=== PATIENT | male | born 1955 | race Hispanic/Latino ===

== ENCOUNTER 2018-09-07 10:21 | Outpatient (CLI) | payer MEDICARE, MEDICAID ==
--- NOTE | 2018-09-07 11:42 | CT ---
EXAM: CT ABDOMEN AND PELVIS HISTORY: History prostate cancer. COMPARISON: 09/18/2015 Procedure: Multiple contiguous axial images were obtained and a CT of the abdomen and pelvis with IV contrast. C oronal reformats were performed. FINDINGS: Lower Chest: within normal limits. Vessels: Normal caliber aorta Heart: Normal heart size. No pericardial effusion Abdomen: Portal vein:Patent Gallbladder: No calcified gallstones. Normal caliber wall. Liver: within normal limits. Pancreas: within normal limits. Spleen: within normal limits. Adrenals: within normal limits. Kidneys: Symmetric enhancement of the kidneys. Bilaterally no obstructive uropathy. Stable hypodensit y anterior and slightly medial to the left kidney measuring 1.5 x 2.2 cm per Peritoneum: No ascites or free air, no fluid collection. Bowel: Normal caliber. Mesentery and Retroperitoneum: No enlarged mesenteric or retroperitoneal lymph nodes. Abdominal Wall: Small umbilical hernia containing mesenteric fat Pelvis: Reproductive Organs: Enlarged prostate gland. Mass effect upon the floor of the urinary bladder. Pelvis: within normal limits. Bladder: Mass effect upon the floor of the urinary bladder with mild bladder wall mucosal thickening. Bones: within normal limits. Old right rib fracture is noted IMPRESSION: 1. Stable left parapelvic renal cyst 2. Symmetric enhancement the kidneys. No obstructive uropathy 3. Enlarged prostate gland 4. Urinary bladder wall mucosal thickening which is presumed to be due to chronic bladder outlet obst ruction. 5. No evidence of osseous metastases
[2018-09-07] MEDS ORDERED: Iopamidol 370 76% 100 ML VIAL ONE (13:21)
--- NOTE | 2018-09-07 16:22 | NM ---
NUCLEAR MEDICINE BONE SCAN WHOLE BODY: (SKELETAL SCINTIGRAPHY) 09/07/18 HISTORY: 63-year-old male with malignant neoplasm of prostate, evaluate for osseous metastasis. Elevated PSA . TECHNIQUE: IV injection of [id number]: 32.3 mCi 3 hour delayed whole body skeletal scintigraphy in anterior and posterior views. FINDINGS: There are no foci of asymmetrically increased uptake that are particularly suspicious for bone metast ases. Compared to the bone scan of 12/22/15, there is now a new finding of a small focus of increased uptake at the right posterior L4-5 level. This corresponds to the high grade right sided facet osteo arthrosis demonstrated on the CT of abdomen and pelvis obtained today. IMPRESSION: 1. No compelling evidence of skeletal metastasis. 2. high grade right facet osteoarthrosis at L4-5. JN Henok POS: CET
== END 2018-09-07 10:22 | disposition home or self-care (01) ==
LOC: NM 10:21
PROVIDERS: ATTEND Urology
DX: C61 Malignant neoplasm of prostate (principal); N28.1 Cyst of kidney, acquired; N40.0 Benign prostatic hyperplasia without lower urinary tract symptoms; N32.89 Other specified disorders of bladder; M47.816 Spondylosis without myelopathy or radiculopathy, lumbar region; N28.89 Other specified disorders of kidney and ureter
CPT/HCPCS: 74177; 78306; 82565; A9503

== ENCOUNTER 2018-09-23 06:41 | Emergency (ER) | payer MEDICARE, MEDICAID ==
[2018-09-23] MEDS ORDERED: Acetaminophen 325 MG TAB ONE (07:43)
[2018-09-23] MEDS ORDERED: Ketorolac Tromethamine 30 MG/ML VIAL ONE (07:43)
--- NOTE | 2018-09-23 08:24 | CT ---
CT cervical spine without contrast: Multiple axial tones obtained through cervical spine with multiplanar reconstruction. INDICATIONS: Chronic neck pain COMPARISON: Cervical spine films 08/29/2015 FINDINGS: Postoperative and degenerative changes are apparent. Anterior plate and screws transfix C3, C4, C5, a nd C6. Interbody implants at these levels. Hypertrophic spurring is seen anteriorly. Posterior spondylosis. Mild anterolisthesis at C4-5 appears similar to the prior study exam. C3-4: Spondylosis abut the anterior cord. Bilateral foraminal stenosis due to hypertrophic change C4-5: Slight anterolisthesis. Posterior spondylosis impinges on the anterior cord centrally and to th e right. Right foraminal stenosis. C5-6: Spondylosis abuts the anterior cord. Right foraminal stenosis. C6-7: Spondylosis impinges on the anterior cord. Bilateral foraminal stenosis, more severe on the lef t. No acute fracture. IMPRESSION: Postoperative and degenerative changes of cervical spine as described
[2018-09-23 08:37] LABS: #Basophils 0.1 thou/uL (0.0-0.2); #Eosinphils 0.3 thou/uL (0.0-0.7); #Monocytes 0.6 thou/uL (0.11-0.59); %Basophils 0.7 % (0.0-1.0); %Eosinophils 3.1 % (0.0-10.0); %Lymphocytes 22.7 % (21.0-51.0); %Monocytes 6.6 % (0.0-10.0); %Neutrophils 66.9 % (42.0-75.0); Hemoglobin 14.3 g/dL (14.0-18.0); Mean Corpuscular HGB CONC 34.1 g/dL (32.0-36.0); Mean Corpuscular Hemoglobin 32.6 pg (27.0-31.0); Mean Corpuscular Volume 95.6 fL (78.0-98.0); Mean Platelet Volume 6.6 fL (7.4-10.4); Platelet Count 285 thou/uL (130-400); RBC Distribution Width 13.2 % (11.5-14.5); Red Blood Cell (RBC) Count 4.37 mill/uL (4.70-6.10)
[2018-09-23 08:51] LABS: ALT (SGPT) 16 U/L (8-55); AST (SGOT) 12 U/L (5-34); Albumin 4.4 g/dL (3.4-4.8); Alkaline Phosphatase 131 U/L (40-150); Anion Gap 13 mmol/L (10-20); BUN (Urea Nitrogen) 16 mg/dL (8.4-25.7); Bilirubin, Total 0.3 mg/dL (0.2-1.2); Calc. Creatinine Clearance 0 mL/min (70-130); Carbon Dioxide 23 mmol/L (23-31); Chloride 105 mmol/L (98-107); Estimated GFR-MDRD 69; Globulin 2.7 g/dL (2.4-3.5); Glucose 118 mg/dL (80-115); Potassium 4.6 mmol/L (3.5-5.1); Protein, Total 7.1 g/dL (5.8-8.1); Sodium 136 mmol/L (136-145)
== END 2018-09-23 09:31 | disposition home or self-care (01) ==
LOC: ERS 06:41
DX: M50.121 Cervical disc disorder at C4-C5 level with radiculopathy (principal); M50.122 Cervical disc disorder at C5-C6 level with radiculopathy; M50.123 Cervical disc disorder at C6-C7 level with radiculopathy; I10 Essential (primary) hypertension; I25.2 Old myocardial infarction; E78.00 Pure hypercholesterolemia, unspecified; F17.210 Nicotine dependence, cigarettes, uncomplicated
CPT/HCPCS: 36415; 72125; 80053; 85025; 96372; J1885

== ENCOUNTER 2018-11-04 08:57 | Emergency (ER) | payer MEDICARE, MEDICAID ==
[2018-11-04 09:58] LABS: #Basophils 0.1 thou/uL (0.0-0.2); #Eosinphils 0.3 thou/uL (0.0-0.7); #Lymphocytes 2.3 thou/uL (1.20-3.40); #Monocytes 0.6 thou/uL (0.11-0.59); #Neutrophils 6.5 thou/uL (1.40-6.50); %Basophils 0.5 % (0.0-1.0); %Eosinophils 2.8 % (0.0-10.0); %Lymphocytes 23.5 % (21.0-51.0); %Monocytes 6.4 % (0.0-10.0); %Neutrophils 66.8 % (42.0-75.0); Hemoglobin 13.4 g/dL (14.0-18.0); Mean Corpuscular HGB CONC 35.3 g/dL (32.0-36.0); Mean Corpuscular Hemoglobin 33.7 pg (27.0-31.0); Mean Corpuscular Volume 95.5 fL (78.0-98.0); Mean Platelet Volume 6.2 fL (7.4-10.4); Platelet Count 264 thou/uL (130-400); RBC Distribution Width 11.9 % (11.5-14.5); Red Blood Cell (RBC) Count 3.96 mill/uL (4.70-6.10); White Blood Cell (WBC) Count 9.7 thou/uL (4.8-10.8)
[2018-11-04 10:19] LABS: Bilirubin Negative (Negative); Blood, Urine 2+ (Negative); Clarity Clear (Clear); Glucose, Urine (Dipstick) Normal (Negative); Leukocyte 75 Leu/uL (Negative); Nitrite Negative (Negative); Protein, Urine (Dipstick) 20 mg/dL (Neg-Trace); RBC/HPF 0-3 HPF (0-3); Squamous Epithelial None Seen HPF (0-3); Urobilinogen Normal mg/dL (Less than 2); WBC/HPF 0-3 HPF (0-3)
[2018-11-04 10:22] LABS: ALT (SGPT) 26 U/L (8-55); AST (SGOT) 18 U/L (5-34); Albumin 4.2 g/dL (3.4-4.8); Alkaline Phosphatase 112 U/L (40-110); Anion Gap 14 mmol/L (10-20); BUN (Urea Nitrogen) 14 mg/dL (8.4-25.7); Bilirubin, Total 0.5 mg/dL (0.2-1.2); Calc. Creatinine Clearance 0 mL/min (70-130); Calcium 9.7 mg/dL (7.8-10.44); Carbon Dioxide 26 mmol/L (23-31); Chloride 101 mmol/L (98-107); Estimated GFR-MDRD 64; Globulin 2.8 g/dL (2.4-3.5); Glucose 114 mg/dL (80-115); Sodium 137 mmol/L (136-145)
[2018-11-04 10:23] LABS: Bacteria/HPF 1+ HPF (None Seen)
[2018-11-04] MEDS ORDERED: Polyethylene Glycol 3350 17 GM Packet PO SCH (11:15)
== END 2018-11-04 11:56 | disposition home or self-care (01) ==
LOC: ERS 08:57
DX: R31.9 Hematuria, unspecified (principal); I10 Essential (primary) hypertension; I25.2 Old myocardial infarction; E78.00 Pure hypercholesterolemia, unspecified; F17.200 Nicotine dependence, unspecified, uncomplicated; Z79.899 Other long term (current) drug therapy; Z85.46 Personal history of malignant neoplasm of prostate
CPT/HCPCS: 36415; 80053; 81003; 81015; 85025; 99283

== ENCOUNTER 2018-11-21 12:34 | Outpatient (CLI) | payer MEDICARE, MEDICAID ==
--- NOTE | 2018-11-21 14:06 | MRI ---
LUMBAR SPINE MRI: DATE: 11/21/2018. COMPARISON: None. HISTORY: Chronic back pain. TECHNIQUE: Multiplanar multisequence MR imaging of the lumbar spine without contrast. FINDINGS: Sagittal STIR imaging demonstrates fluid within the right L4-5 facet joint. On the basis of 5 lumbar-type vertebral bodies, the conus medullaris terminates at the L1 level. T12-L1: Unremarkable. L1-2: Unremarkable. L2-3: There is disc desiccation and mild bilateral facet hypertrophy. There is minimal disc bulge. No significant central canal or neural foraminal stenosis. L3-4: There is disc desiccation and mild disc bulge. There is a small central annular tear. No signif icant central canal or neural foraminal stenosis. L4-5: Disc space narrowing, disc desiccation, central annular tear, and mild disc bulge present. Mild central canal stenosis. Prominent bilateral facet hypertrophy present. Mild bilateral neural foraminal stenosis. L5-S1: There is disc space narrowing with disc desiccation and a disc osteophyte complex. Small centr al disc protrusion. Mild central canal stenosis. Bilateral facet hypertrophy present. Vacuum disc formation noted. Mild bilateral neural foraminal stenosis, right greater than left. Visualized retroperitoneal structures demonstrate no acute findings. IMPRESSION: Multilevel lower lumbar spine degenerative change as described above. Findings are most significant a t the L4-5 level. Transcribed Date/Time: 11/21/2018 2:27 PM
== END 2018-11-21 12:35 | disposition home or self-care (01) ==
LOC: MRI 12:34
PROVIDERS: ATTEND Physical Medicine & Rehabilitation
DX: M54.5 Low back pain (principal); M79.604 Pain in right leg; M99.33 Osseous stenosis of neural canal of lumbar region; M47.816 Spondylosis without myelopathy or radiculopathy, lumbar region
CPT/HCPCS: 72148

== ENCOUNTER 2018-11-25 16:53 | Emergency (ER) | payer MEDICARE, MEDICAID ==
[~2018-11-25 16:53] MED LIST: ISOVUE-370 76%-LOCM 1 ML ONE
[2018-11-25 17:27] LABS: #Basophils 0.1 thou/uL (0.0-0.2); #Eosinphils 0.3 thou/uL (0.0-0.7); #Lymphocytes 2.6 thou/uL (1.20-3.40); #Monocytes 0.5 thou/uL (0.11-0.59); #Neutrophils 6.7 thou/uL (1.40-6.50); %Basophils 0.6 % (0.0-1.0); %Eosinophils 2.5 % (0.0-10.0); %Lymphocytes 25.3 % (21.0-51.0); %Monocytes 5.1 % (0.0-10.0); %Neutrophils 66.5 % (42.0-75.0); Hemoglobin 14.3 g/dL (14.0-18.0); Mean Corpuscular HGB CONC 35.8 g/dL (32.0-36.0); Mean Corpuscular Hemoglobin 33.9 pg (27.0-31.0); Mean Corpuscular Volume 94.8 fL (78.0-98.0); Mean Platelet Volume 6.1 fL (7.4-10.4); Platelet Count 343 thou/uL (130-400); RBC Distribution Width 11.9 % (11.5-14.5); Red Blood Cell (RBC) Count 4.22 mill/uL (4.70-6.10); White Blood Cell (WBC) Count 10.1 thou/uL (4.8-10.8)
[2018-11-25 17:47] LABS: ALT (SGPT) 30 U/L (8-55); AST (SGOT) 14 U/L (5-34); Albumin 4.4 g/dL (3.4-4.8); Alkaline Phosphatase 175 U/L (40-110); Anion Gap 14 mmol/L (10-20); BUN (Urea Nitrogen) 18 mg/dL (8.4-25.7); Bilirubin, Total 0.4 mg/dL (0.2-1.2); Calc. Creatinine Clearance 0 mL/min (70-130); Calcium 9.9 mg/dL (7.8-10.44); Carbon Dioxide 26 mmol/L (23-31); Chloride 100 mmol/L (98-107); Estimated GFR-MDRD 53; Globulin 3.4 g/dL (2.4-3.5); Glucose 175 mg/dL (80-115); Protein, Total 7.8 g/dL (5.8-8.1); Sodium 136 mmol/L (136-145)
--- NOTE | 2018-11-25 17:55 | RAD ---
EXAM: Single view of the chest HISTORY: Worsening abdominal pain COMPARISON: 09/04/2013 FINDINGS: Single view of the chest shows a normal sized cardiomediastinal silhouette. The patient is status post sternotomy. There is no evidence of consolidation, mass, or pleural effusion. The bones are unremarkable. IMPRESSION: No evidence of acute cardiopulmonary disease
--- NOTE | 2018-11-25 18:19 | CT ---
CT Abdomen Pelvis W Con: 11/25/2018 5:36 PM CLINICAL INFORMATION: Abdominal pain and pain in the penis. COMPARISON: 09/07/2018 TECHNIQUE: Multiple contiguous axial images were obtained and a CT of the abdomen and pelvis with IV contrast. C oronal and sagittal reformats were performed. FINDINGS: Lower Chest: within normal limits. Abdomen: Liver: within normal limits. Bile Ducts: Normal caliber. Gallbladder: No calcified gallstones. Normal caliber wall. Pancreas: within normal limits. Spleen: within normal limits. Adrenals: within normal limits. Kidneys: within normal limits. Pelvis: Reproductive Organs: No pelvic masses. Ureters: within normal limits. Bladder: There is diffuse thickening of the wall of the urinary bladder. The prostate has decreased i n size compared to the prior exam likely secondary to transurethral resection of part of the prostate. Peritoneum: No ascites or free air, no fluid collection. Bowel: Normal caliber. Normal appendix. Mesentery and Retroperitoneum: No enlarged mesenteric or retroperitoneal lymph nodes. Vessels: Atherosclerotic calcifications. Abdominal Wall: There is a 3.2 cm right inguinal hernia containing a portion of a loop of small bowel . Bones: Degenerative changes in the spine. IMPRESSION: 1. No evidence of acute intraabdominal or pelvic abnormality. 2. Stable diffuse thickening of the urinary bladder wall. 3. Right inguinal hernia.
[2018-11-25 18:21] LABS: Bilirubin Small (Negative); Blood, Urine Large (Negative); Glucose, Urine (Dipstick) Negative (Negative); Leukocyte Small (Negative); Nitrite Negative (Negative); Protein, Urine (Dipstick) 100 mg/dL (Neg-Trace); Urobilinogen 0.2 mg/dL (Less than 2)
[2018-11-25 18:22] LABS: Clarity Cloudy (Clear)
[2018-11-25 18:27] LABS: RBC/HPF Greater than 50 HPF (0-3)
[2018-11-25 18:28] LABS: Bacteria/HPF None Seen HPF (None Seen); Mucous/LPF Rare LPF (<2+); Squamous Epithelial None Seen HPF (0-3)
== END 2018-11-25 21:31 | disposition home or self-care (01) ==
LOC: ERS 16:53
DX: R31.0 Gross hematuria (principal); R07.9 Chest pain, unspecified; I10 Essential (primary) hypertension; I25.2 Old myocardial infarction; F17.210 Nicotine dependence, cigarettes, uncomplicated
CPT/HCPCS: 36415; 71045; 74177; 80053; 81003; 81015; 83605; 83690; 84484; 85025; 87086; 93005; 94760

== ENCOUNTER 2019-02-22 12:44 | Outpatient (CLI) | payer MEDICARE, MEDICAID ==
--- NOTE | 2019-02-22 14:57 | MRI ---
MRI CERVICAL SPINE WITH AND WITHOUT CONTRAST: HISTORY: Neck pain. Prostate cancer. COMPARISON: 05/20/2015. FINDINGS: Anterior fusion plate with transvertebral body screw at C3, C4, C5 and C6. Disc prosthesis at C3-C4, C4-C5 and C5-C6. Limited evaluation of the T1 marrow signal intensity due to anterior fusion changes. Heterogeneous marrow signal likely due to senescent change. No fracture. No significant STIR hyperintensity to suggest vertebral body edema or ligamentous injury. Visualized brain parenchyma, cervicomedullary junction, cervical cord and the upper thoracic cord hav e a normal size and signal intensity. Spondylolisthesis: C7-T1: 1.6 mm of anterolisthesis. T2-T3: 2.4 mm of anterolisthesis. C2-C3: No significant central canal stenosis or significant neural foraminal narrowing. C3-C4: Broad-based osteophyte ridge. Disc prosthesis. Mild central canal stenosis. Moderate right monica ral foraminal narrowing. Left neural foramen is patent. C4-C5: Broad-based disc-osteophyte ridge abuts the thecal sac. Subarachnoid space is maintained. Mild deformity of the midline cervical cord, without cord hyperintensity. Mild central canal stenosis. Mild to moderate right neural foraminal narrowing. Left neural foramen is patent. C5-C6: Broad-based osteophyte ridge abuts the thecal sac. There is no significant central canal steno sis. Moderate right neural foraminal narrowing due to uncovertebral hypertrophy. Left neural foramen is patent. C6-C7: Broad-based disc-osteophyte complex. No significant canal stenosis. Mild right and moderate le ft neural foraminal narrowing. C7-T1: No significant central canal stenosis. Neural foramina are patent. Postcontrast imaging: Essentially of normal and signal intensity of the visualized vertebrae. The cer vical cord and visualized thoracic cord have normal signal intensity. No abnormal enhancement. IMPRESSION: 1. Cervical fusion from C3 through C6. No evidence of complicating process. 2. No pathologic enhancement. 3. Varying degrees of central canal stenosis and neural foraminal narrowing as detailed above. Transcribed Date/Time: 02/22/2019 3:05 PM
== END 2019-02-22 12:45 | disposition home or self-care (01) ==
LOC: MRI 12:44
PROVIDERS: ATTEND Physical Medicine & Rehabilitation
DX: M48.02 Spinal stenosis, cervical region (principal); M54.2 Cervicalgia; Z98.1 Arthrodesis status
CPT/HCPCS: 72156; 82565

== ENCOUNTER 2019-12-10 07:30 | Outpatient (CLI) | payer MEDICARE, MEDICAID ==
--- NOTE | 2019-12-10 09:26 | RAD ---
CERVICAL SPINE 5 VIEWS: Date: 12/10/2019 HISTORY: Neck pain. COMPARISON: Prior MRI, 02/22/2019. FINDINGS: Stable anterior cervical fusion changes at C3 through C6. Disc osteophytosis and facet arthrosis. No prevertebral soft tissue swelling. No abnormal translation between flexion and extension. IMPRESSION: Status post anterior cervical fusion changes C3 through C6, with disc osteophytosis and facet arthros is without abnormal translation between flexion and extension. POS: RRE
== END 2019-12-10 07:31 | disposition home or self-care (01) ==
LOC: RAD 07:30
PROVIDERS: ATTEND Neurological Surgery
DX: M54.2 Cervicalgia (principal); M25.78 Osteophyte, vertebrae; M47.812 Spondylosis without myelopathy or radiculopathy, cervical region; Z98.1 Arthrodesis status
CPT/HCPCS: 72050

== ENCOUNTER 2019-12-13 03:14 | Emergency (ER) | payer MEDICARE, OTHER ==
[2019-12-13 03:53] LABS: #Eosinphils 0.2 thou/uL (0.0-0.7); #Lymphocytes 1.8 thou/uL (1.20-3.40); #Monocytes 0.6 thou/uL (0.11-0.59); %Basophils 0.3 % (0.0-1.0); %Eosinophils 2.3 % (0.0-10.0); %Lymphocytes 18.5 % (21.0-51.0); %Monocytes 6.4 % (0.0-10.0); %Neutrophils 72.5 % (42.0-75.0); Hemoglobin 13.7 g/dL (14.0-18.0); Mean Corpuscular HGB CONC 33.3 g/dL (32.0-36.0); Mean Corpuscular Hemoglobin 31.9 pg (27.0-31.0); Mean Corpuscular Volume 95.9 fL (78.0-98.0); Mean Platelet Volume 6.4 fL (7.4-10.4); Platelet Count 287 thou/uL (130-400); RBC Distribution Width 14.1 % (11.5-14.5); White Blood Cell (WBC) Count 9.6 thou/uL (4.8-10.8)
[2019-12-13 04:10] LABS: ALT (SGPT) 20 U/L (8-55); AST (SGOT) 15 U/L (5-34); Albumin 4.5 g/dL (3.4-4.8); Alkaline Phosphatase 99 U/L (40-110); Anion Gap 13 mmol/L (10-20); BUN (Urea Nitrogen) 20 mg/dL (8.4-25.7); Bilirubin, Total 0.3 mg/dL (0.2-1.2); CK (CPK) 70 U/L (30-200); Calc. Creatinine Clearance 0 mL/min (70-130); Calcium 10.1 mg/dL (7.8-10.44); Carbon Dioxide 27 mmol/L (23-31); Chloride 102 mmol/L (98-107); Estimated GFR-MDRD 65; Globulin 2.9 g/dL (2.4-3.5); Glucose 112 mg/dL (80-115); Lipase 19 U/L (8-78); Potassium 3.6 mmol/L (3.5-5.1); Protein, Total 7.4 g/dL (5.8-8.1); Sodium 138 mmol/L (136-145)
[2019-12-13 06:26] LABS: Troponin I 0.012 ng/mL (< 0.028)
--- NOTE | 2019-12-13 07:10 | RAD ---
RADIOGRAPH CHEST 1 VIEW: DATE: 12/13/2019 HISTORY: 64-year-old male with palpitations, dyspnea, and hypertension. FINDINGS: There are no airspace densities, pulmonary edema, pneumothorax, or cardiomegaly. The lateral costophr enic angles are sharp. There are sternotomy wires. IMPRESSION: No acute cardiopulmonary findings.
== END 2019-12-13 06:39 | disposition home or self-care (01) ==
LOC: ERS 03:14
DX: R00.2 Palpitations (principal); I10 Essential (primary) hypertension; I25.2 Old myocardial infarction; E78.00 Pure hypercholesterolemia, unspecified; F17.200 Nicotine dependence, unspecified, uncomplicated; Z79.84 Long term (current) use of oral hypoglycemic drugs; Z79.899 Other long term (current) drug therapy
CPT/HCPCS: 36415; 71045; 80053; 82550; 83690; 84484; 85025; 93005

== ENCOUNTER 2020-10-04 11:03 | Emergency (ER) | payer MEDICARE, OTHER ==
[2020-10-04] MEDS ORDERED: Ketorolac Tromethamine 30 MG/ML VIAL ONE (12:15)
== END 2020-10-04 13:30 | disposition home or self-care (01) ==
LOC: ERS 11:03
DX: M54.5 Low back pain (principal); I10 Essential (primary) hypertension; I25.2 Old myocardial infarction; E78.00 Pure hypercholesterolemia, unspecified; Z87.891 Personal history of nicotine dependence; Z79.899 Other long term (current) drug therapy; W19.XXXA Unspecified fall, initial encounter
CPT/HCPCS: 72100; 96372; J1885

== ENCOUNTER 2021-07-08 12:33 | Outpatient (CLI) | payer MEDICARE, OTHER | END 2021-07-08 12:34 | disposition home or self-care (01) | LOC: BICRAD 12:33 | PROVIDERS: ATTEND Podiatrist | DX: S99.911A Unspecified injury of right ankle, initial encounter (principal); M79.671 Pain in right foot; Z98.890 Other specified postprocedural states ==

== ENCOUNTER 2021-08-21 14:07 | Emergency (ER) | payer MEDICARE, OTHER ==
[~2021-08-21 14:07] MED LIST changes: -ISOVUE-370 76%-LOCM 1 ML ONE; +Iopamidol-370 76% 500 ML 1 ML ONE
[2021-08-21 15:05] LABS: Hemoglobin 15.5 g/dL (14.0-18.0); Mean Corpuscular HGB CONC 32.7 g/dL (32.0-36.0); Mean Corpuscular Hemoglobin 31.9 pg (27.0-31.0); Mean Corpuscular Volume 97.7 fL (78.0-98.0); Mean Platelet Volume 6.6 fL (7.4-10.4); Platelet Count 282 thou/uL (130-400); RBC Distribution Width 13.9 % (11.5-14.5); Red Blood Cell (RBC) Count 4.85 mill/uL (4.70-6.10); White Blood Cell (WBC) Count 8.2 thou/uL (4.8-10.8)
[2021-08-21 15:06] LABS: #Basophils 0.1 thou/uL (0.0-0.2); #Eosinphils 0.2 thou/uL (0.0-0.7); #Lymphocytes 1.9 thou/uL (1.20-3.40); #Monocytes 0.5 thou/uL (0.11-0.59); #Neutrophils 5.6 thou/uL (1.40-6.50); %Basophils 0.6 % (0.0-1.0); %Eosinophils 2.4 % (0.0-10.0); %Lymphocytes 23.1 % (21.0-51.0); %Monocytes 5.8 % (0.0-10.0)
[2021-08-21 15:37] LABS: ALT (SGPT) 24 U/L (8-55); AST (SGOT) 16 U/L (5-34); Albumin 4.6 g/dL (3.4-4.8); Alkaline Phosphatase 120 U/L (40-110); Anion Gap 18 mmol/L (10-20); BUN (Urea Nitrogen) 17 mg/dL (8.4-25.7); Bilirubin, Total 0.8 mg/dL (0.2-1.2); Calc. Creatinine Clearance 0 mL/min (70-130); Calcium 10.3 mg/dL (7.8-10.44); Carbon Dioxide 26 mmol/L (23-31); Chloride 101 mmol/L (98-107); Estimated GFR 63; Globulin 2.7 g/dL (2.4-3.5); Glucose 132 mg/dL (80-115); Potassium 4.1 mmol/L (3.5-5.1); Protein, Total 7.3 g/dL (5.8-8.1); Sodium 141 mmol/L (136-145)
[2021-08-21 16:17] LABS: Bacteria/HPF None Seen HPF (None Seen); Bilirubin Negative (Negative); Blood, Urine 3+ (Negative); Clarity Clear (Clear); Glucose, Urine (Dipstick) Greater than 1000 mg/dL (Negative); Ketone, Urine Negative (Negative); Leukocyte Negative Leu/uL (Negative); Nitrite Negative (Negative); Protein, Urine (Dipstick) 20 mg/dL (Neg-Trace); RBC/HPF Greater than 50 HPF (0-3); Specific Gravity, Urine 1.029 (1.002-1.036); Squamous Epithelial None Seen HPF (0-3); Urobilinogen Normal mg/dL (Less than 2); WBC/HPF 0-3 HPF (0-3)
== END 2021-08-21 18:26 | disposition home or self-care (01) ==
LOC: ERS 14:07
DX: N41.9 Inflammatory disease of prostate, unspecified (principal); E11.9 Type 2 diabetes mellitus without complications; I10 Essential (primary) hypertension; I25.2 Old myocardial infarction; Z87.891 Personal history of nicotine dependence; Z79.899 Other long term (current) drug therapy
CPT/HCPCS: 36415; 74177; 80053; 81003; 81015; 85025; 87086; Q9967